=== PATIENT | female | born 1990 | race Caucasian/White ===

== ENCOUNTER 2019-04-27 17:52 | Emergency (ER) | payer SELFPAY ==
[~2019-04-27] VITALS: Ht 167.6 cm; Wt 89.3 kg
[~2019-04-27 17:52] MED LIST: FERR240T9 PO; PREN-39 PO
[2019-04-27 18:07] VITALS: Ht 167.6 cm; Wt 89.3 kg
[2019-04-27] MEDS ORDERED: FLUC150T PO (19:57)
[2019-04-27] MEDS ORDERED: PHEN-538 PO (19:57)
[2019-04-27] MEDS ORDERED: CEPH-443 PO (19:57)
[2019-04-27] MEDS ORDERED: CEPHALEXIN 500 MG CAP PO ONE (20:00)
[2019-04-27] MEDS ORDERED: PHENAZOPYRIDINE 100 MG TAB PO ONE (20:00)
--- NOTE | 2019-04-27 20:03 | ERD ---
ER Documentation Chief Complaint Chief Complaint PT with vaginal pain and dysuria X 2 weeks HPI 28-year-old female presents with dysuria for last 1 to 2 weeks. She also complains of slight foul-smelling discharge mostly yellow or white. She denies fevers, vomiting. She has suprapubic pain but denies her left abdominal pain, chest pain, shortness of breath. Denies . ROS All systems reviewed and are negative except as per history of present illness. Medications Home Meds Active Scripts Fluconazole* (Diflucan*) 150 Mg Tablet, 150 MG PO ONCE, #1 TAB Prov:QUINN RUELAS MD 04/27/19 Phenazopyridine Hcl* (Pyridium*) 200 Mg Tab, 200 MG PO TID PRN for URINARY PAIN, #6 TAB Prov:QUINN RUELAS MD 04/27/19 Cephalexin* (Keflex*) 500 Mg Capsule, 500 MG PO QID for 5 Days, CAP Prov:QUINN RUELAS MD 04/27/19 Reported Medications Ferrous Gluconate (Iron) 1 Tab Tablet, 1 TAB PO BID 08/13/15 Vits W-Ca,Fe,Fa(<1MG) ( Vitamins) 1 Tab Tablet, 1 TAB PO DAILY 08/13/15 Allergies Allergies: Coded Allergies: No Known Drug Allergies (Verified Allergy, Unknown, 04/27/19) PMhx/Soc Medical and Surgical Hx: pt denies Medical Hx, pt denies Surgical Hx Hx Alcohol Use: No Hx Substance Use: No Hx Tobacco Use: No Smoking Status: Never smoker FmHx Family History: No diabetes, No coronary disease, No other Physical Exam Vitals Vital Signs Date Temp Pulse Resp B/P (MAP) Pulse Ox O2 O2 Flow FiO2 Time Delivery Rate 04/27/19 98.3 80 18 149/86 100 18:07 (107) Physical Exam Const: No acute distress Head: Atraumatic Eyes: Normal Conjunctiva ENT: Normal External Ears, Nose and Mouth. Neck: Full range of motion. No meningismus. Resp: Clear to auscultation bilaterally Cardio: Regular rate and rhythm, no murmurs Abd: Soft, non tender, non distended. Normal bowel sounds. Vaginal exam with photoengraving printer shows slight whitish discharge at the introitus. No cervical motion tenderness, adnexal masses's. No tenderness at McBurney's point no Aldana sign. Skin: No petechiae or rashes Back: No midline or flank tenderness Ext: No cyanosis, or edema Neur: Awake and alert Psych: Normal Mood and Affect Results 24 hrs Laboratory Tests Test 04/27/19 19:05 04/27/19 19:06 POC Beta HCG, Qualitative NEGATIVE Bedside Urine pH (LAB) 6.0 Bedside Urine Protein (LAB) Negative Bedside Urine Glucose (UA) Negative Bedside Urine Ketones (LAB) Negative Bedside Urine Blood Trace-lysed Bedside Urine Nitrite (LAB) Negative Bedside Urine Leukocyte Esterase (L 2+ Current Medications Medications Dose Sig/Chayo Start Time Status Last (Trade) Ordered Route PRN Stop Time Admin Dose Reason Admin Cephalexin 500 mg ONCE ONCE 04/27/19 DC (Keflex) PO 20:00 04/27/19 20:01 200 mg ONCE ONCE 04/27/19 DC Phenazopyridi PO 20:00 ne HCl 04/27/19 20:01 (Pyridium) Procedures/MDM Urine shows leukocyte esterase. hCG negative.. Patient presents with signs and symptoms of dysuria, likely uncomplicated cystitis. She has some nonspecific vaginal discharge and we will treat empirically with Diflucan, primary care follow-up and return precautions for abdominal pain, fevers, vomiting, new worsening symptoms. The patient was stable with no new complaints during the ER course. Clinically, there is no current evidence to suggest meningitis, sepsis, acute abdomen, pneumonia, stroke, acute coronary syndrome, pulmonary embolism, aortic dissection or any other emergent condition appearing to require further evaluation or hospitalization. Patient counseled regarding my diagnostic impression and care plan. Prior to discharge all questions answered. Pt agrees with treatment plan and understands strict return precautions. Pt is instructed to follow up with primary care provider within 24-48 hours. Precautionary instructions provided including instructions to return to the ER if not improving or for any worsening or changing symptoms or concerns. Disclaimer: Inadvertent spelling and grammatical errors are likely due to EHR/dictation software use and do not reflect on the overall quality of patient care. Also, please note that the electronic time recorded on this note does not necessarily reflect the actual time of the patient encounter. Departure Diagnosis: Primary Impression: UTI (urinary tract infection) Urinary tract infection type: acute cystitis Hematuria presence: without hematuria Qualified Codes: N30.00 - Acute cystitis without hematuria Condition: Stable Patient Instructions: Understanding Urinary Tract Infections (UTIs) Additional Instructions: orina tiene infeccion. Examines normal hoy. Cheque otro vez con bhatia doctor primario en el proximo urrutia or regresa para mas o nueva simptomas. QUINN RUELAS MD Apr 27, 2019 20:03
[2019-04-27 20:13] VITALS: BP 132/76; PULSE 78; RESP 17
== END 2019-04-27 20:13 | disposition home or self-care (01) ==
LOC: FTE 17:52
DX: N30.00 Acute cystitis without hematuria (principal)
CPT/HCPCS: 81003; 81025; 99284